=== PATIENT | female | born 1985 | race Caucasian/White ===

== ENCOUNTER 2018-07-24 17:21 | Day surgery (SDC) | payer BC ==
[2018-07-24] VITALS (7 sets, daily range): BP systolic 100–119; BP diastolic 45–73; PULSE 66–111; TEMP 99.9
[2018-07-24] MEDS ORDERED: JULEBER 28 DAY1 EACH PO (17:50)
[2018-07-24] MEDS ORDERED: ZYRTEC 10MG10 MG PO (17:51)
[2018-07-24] MEDS ORDERED: IBU600 MG PO (21:41)
[2018-07-24] MEDS ORDERED: PERCOCET 325 MG1 TA2 PO (21:41)
== END 2018-07-24 23:55 | disposition home or self-care (01) ==
LOC: SDCO 17:21 → OB 17:25 → SDCO 19:00
DX: D25.9 Leiomyoma of uterus, unspecified (principal); N89.8 Other specified noninflammatory disorders of vagina; F17.210 Nicotine dependence, cigarettes, uncomplicated; Z80.0 Family history of malignant neoplasm of digestive organs; Z80.42 Family history of malignant neoplasm of prostate; Z80.1 Family history of malignant neoplasm of trachea, bronchus and lung; Z80.8 Family history of malignant neoplasm of other organs or systems
CPT/HCPCS: OP; J1885; J2210; J2250; J2405; J2704; J3010; J7120